=== PATIENT | male | born 1995 | race Caucasian/White ===

== ENCOUNTER 2017-04-28 15:13 | Observation (INO) | payer MEDICAID ==
[~2017-04-28] VITALS: Ht 165.1 cm; Wt 49.9 kg
[2017-04-28] MEDS ORDERED: ASPirin 81 mg TAB PO ONE (16:00)
[2017-04-28] MEDS ORDERED: LORazepam 0.5 MG TAB PO ONE (16:30)
[2017-04-28 16:37] LABS: Albumin 4.5 g/dL (3.4-5.0); Alkaline Phosphatase 89 U/L (45-117); Anion Gap 8 (5-15); Aspartate Aminotransferase 25 U/L (15-37); BUN/Creatinine Ratio 15.6; Bilirubin, Total 0.5 mg/dL (0.2-1.0); Blood Urea Nitrogen 14 mg/dL (7-18); Calcium 9.1 mg/dL (8.5-10.1); Carbon Dioxide 27 mmol/L (21-32); Chloride 107 mmol/L (98-107); GFR African American 137 mL/min; GFR Non-African American 113 mL/min; Glucose 106 mg/dL (74-106); Potassium 3.7 mmol/L (3.5-5.1); Sodium 142 mmol/L (136-145); Total Protein 7.8 g/dL (6.4-8.2)
[2017-04-28 16:42] LABS: Basophils # (auto) 0 uL; Basophils % (auto) 0.4 % (0.0-2.0); CONDITION Y; Eosinophils # (auto) 0 uL; Hematocrit 44.2 % (41.0-53.0); Hemoglobin 15.3 g/dL (13.5-17.5); Lymphocytes # (auto) 0.9 uL; Lymphocytes % (auto) 11.7 % (10.0-50.0); Mean Corpuscular Hemoglobin 31.8 pg (28.0-32.0); Mean Corpuscular Hgb Conc. 34.5 g/dL (32.0-36.0); Mean Corpuscular Volume 92.2 fL (80.0-100.0); Mean Platelet Volume 7.7 fL (7.4-10.4); Monocytes # (auto) 0.5 uL; Monocytes % (auto) 6.7 % (0.0-12.0); Neutrophils # (auto) 6.6 uL; Neutrophils % (auto) 81.2 % (37.0-80.0); Platelet Count (auto) 243 10^3/uL (140-450); Red Cell Distribution Width 12.8 % (11.6-16.0); White Blood Cell 8.1 10^3/uL (4.4-10.8)
[2017-04-28 17:03] LABS: INR 1.03 (0.9-1.15)
[2017-04-28 20:06] VITALS: BP 117/68
== END 2017-04-28 20:11 | disposition home or self-care (01) | DRG 203 ==
LOC: ER 15:18 → OVERFLOW 15:59 → ER 20:11
PROVIDERS: ADMIT Family Medicine; ATTEND Family Medicine
DX: R07.89 Other chest pain (principal); F41.0 Panic disorder [episodic paroxysmal anxiety]; R00.2 Palpitations
CPT/HCPCS: 36415; 71020; 80053; 80307; 82962; 83735; 84443; 84484; 85025; 85379; 85610; 85730; 93005; 99285; G0378

== ENCOUNTER 2019-08-24 15:12 | Emergency (ER) | payer MEDICAID ==
[~2019-08-24] VITALS: Ht 165.1 cm; Wt 52.2 kg
[2019-08-24 15:26] VITALS: BP 121/87
[2019-08-24 15:53] LABS: Basophils # (auto) 0.1 uL; Basophils % (auto) 0.8 % (0.0-2.0); Eosinophils # (auto) 0 uL; Eosinophils % (auto) 0.4 % (0.0-7.0); Hematocrit 50.2 % (41.0-53.0); Hemoglobin 17.5 g/dL (13.5-17.5); Lymphocytes # (auto) 1.7 uL; Lymphocytes % (auto) 25.3 % (10.0-50.0); Mean Corpuscular Hemoglobin 32.4 pg (28.0-32.0); Mean Corpuscular Volume 92.7 fL (80.0-100.0); Monocytes # (auto) 0.6 uL; Monocytes % (auto) 8.2 % (0.0-12.0); Neutrophils # (auto) 4.5 uL; Neutrophils % (auto) 65.3 % (37.0-80.0); Nucleated Red Blood Cells % 0.1 %; Platelet Count (auto) 279 10^3/uL (140-450); Red Blood Cells 5.41 10^6/uL (4.5-5.90); Red Cell Distribution Width 12.1 % (11.8-14.3); White Blood Cell 6.8 10^3/uL (4.4-10.8)
[2019-08-24 16:05] LABS: Albumin 4.4 g/dL (3.4-5.0); Anion Gap 6 (5-15); Blood Urea Nitrogen 15 mg/dL (7-18); Calcium 8.5 mg/dL (8.5-10.1); Carbon Dioxide 27 mmol/L (21-32); Chloride 107 mmol/L (98-107); Glucose 107 mg/dL (74-106); Potassium 3.9 mmol/L (3.5-5.1); Sodium 140 mmol/L (136-145)
[2019-08-24 16:10] LABS: Alanine Aminotransferase 57 U/L (16-61); Alkaline Phosphatase 101 U/L (45-117); Aspartate Aminotransferase 22 U/L (15-37); BUN/Creatinine Ratio 13.6; Bilirubin, Total 0.6 mg/dL (0.2-1.0); GFR African American 106 mL/min; GFR Non-African American 87 mL/min; Total Protein 8.1 g/dL (6.4-8.2)
== END 2019-08-24 17:10 | disposition left against medical advice (07) ==
LOC: ER 15:15
DX: R00.2 Palpitations (principal)
CPT/HCPCS: 36415; 80053; 84484; 85025; 93005

== ENCOUNTER 2022-03-15 16:29 | Emergency (ER) | payer MEDICAID ==
[~2022-03-15] VITALS: Ht 167.6 cm; Wt 54.4 kg
[2022-03-15 16:50] VITALS: BP 140/91
[2022-03-15 20:26] LABS: Urine Bacteria NONE SEEN /hpf (None Seen); Urine Blood Negative /uL (Negative); Urine WBC 19 /hpf (0 - 3)
[2022-03-15] MEDS ORDERED: AMOX-277 PO (21:02)
[2022-03-15] MEDS ORDERED: NITR-52 PO (21:02)
== END 2022-03-15 21:14 | disposition home or self-care (01) ==
LOC: ER 16:29
DX: S41.151A Open bite of right upper arm, initial encounter (principal); F12.10 Cannabis abuse, uncomplicated; N39.0 Urinary tract infection, site not specified; W54.0XXA Bitten by dog, initial encounter; Y93.89 Activity, other specified; Y92.89 Other specified places as the place of occurrence of the external cause; Y99.8 Other external cause status
CPT/HCPCS: 73080; 81001